=== PATIENT | female | born 1995 | race Caucasian/White ===

== ENCOUNTER 2020-10-24 18:04 | Emergency (ER) | payer OTHER ==
[~2020-10-24] VITALS: Ht 152.4 cm; Wt 59.0 kg
[2020-10-24 18:04] VITALS: BP 102/54
--- NOTE | 2020-10-24 18:05 | NUR ---
[id number], came to ER c/o pain to incision site started yesterday post 15 days ago -drainage +redness +warm to touch. Afebrile. RR is even and unlabored with nad noted. Non diaphoretic. Awaiting MD for eval.
--- NOTE | 2020-10-24 18:22 | NUR ---
Incision is intact upon assessment.
[2020-10-24] MEDS ORDERED: CEPH500C2 PO (18:29)
[2020-10-24] MEDS ORDERED: SULF1TAB48 PO (18:29)
== END 2020-10-24 18:58 | disposition home or self-care (01) ==
LOC: ER 18:57
DX: O86.00 Infection of obstetric surgical wound, unspecified (principal); Z98.890 Other specified postprocedural states